=== PATIENT | male | born 1975 | race Caucasian/White ===

== ENCOUNTER 2024-03-04 14:44 | Inpatient (IN) | payer BC, SELFPAY ==
[2024-03-04] MEDS ORDERED: NA CHLORIDE 0.9% 1,000 ML ONE (15:03)
[2024-03-04 15:34] LABS: Absolute Basophils 0.3 K/uL (0-0.5); Absolute Eosinophils 0.1 K/uL (0-0.5); Absolute Lymphocytes (CBC) 1.7 K/uL (0.7-4.9); Absolute Monocytes 0.9 K/uL (0.1-1.3); Absolute Neutrophil 8.7 K/uL (1.8-8.0); Basophils % 2.5 % (0-1.3); Eosinophils % 0.8 % (0-4.4); Hemoglobin 15.2 g/dL (13.6-17.9); Lymphocytes % 14.5 % (15.3-44.8); MCH 27.2 pg (27.0-35.0); MCHC 33.8 g/dL (32.0-36.0); MCV 80.6 fL (80-100); MPV 8.3 fL (7.6-11.3); Monocytes % 7.5 % (3.3-12.3); Neutrophils % 74.7 % (41.7-73.7); Nucleated Red Blood Cells % 0.1 % (0-0); Platelets 332 thou/uL (152-406); RBC Red Blood Cell Count 5.58 M/uL (4.33-5.43); Red Cell Distribution Width 13.4 % (12.1-15.2)
--- NOTE | 2024-03-04 15:47 | RAD REPORT ---
EXAM: CT brain without contrast HISTORY: ams COMPARISON: None TECHNIQUE: Multiple contiguous axial images were obtained and a CT of the brain without contrast. Sag ittal and coronal reformats were performed. FINDINGS:No evidence of hydrocephalus, intracranial hemorrhage, or extra-axial fluid collection. The brain is normal in morphology. The calvarium is intact. The visualized mastoid air cells are essentially clear. Complete opacificati on of the left maxillary and frontal sinuses. IMPRESSION: No evidence of acute intracranial abnormality. Complete inflammatory opacification of the left maxillary and frontal sinuses. EXAM: CT of the cervical spine without contrast HISTORY: ams COMPARISON: None TECHNIQUE: Multiple contiguous axial images were obtained in a CT of the cervical spine without contr ast. Sagittal and coronal reformats were performed. FINDINGS: The vertebral bodies demonstrate normal height and alignment. No evidence of acute fracture or subluxation.. No degenerative changes are present. No prevertebral soft tissue swelling is seen. The posterior facets are well aligned. Normal alignment of the skull base with the cervical spine is seen. The lung apices are unremarkable. IMPRESSION: No evidence of acute osseous abnormality of the cervical spine.
[2024-03-04 15:50] LABS: Albumin 3.8 g/dL (3.4-5.0); Albumin/Globulin Ratio 0.8 (1.1-1.8); Anion Gap 13.4 mEq/L (5.0-15.0); Bilirubin Direct 0.3 mg/dL (0-0.2); Bilirubin Indirect, Calculated 1.2 mg/dL (0.2-0.8); Bilirubin Total 1.5 mg/dL (0.2-1.0); Globulin 4.5 g/dL (2.3-3.5); Potassium 4.4 mEq/L (3.5-5.1); Protein, Total 8.3 g/dL (6.4-8.2)
--- NOTE | 2024-03-04 16:07 | RAD REPORT ---
EXAMINATION: ONE VIEW CHEST XR CLINICAL INDICATION: Male, 48 years old.,ams TECHNIQUE: Frontal chest projection is submitted. Examination is limited by patient positioning and t echnique. COMPARISON: No prior exam. FINDINGS: The lungs are well inflated and clear. No pneumothorax or sizable effusion. The heart is normal in s ize. Mediastinal contours are unremarkable. IMPRESSION: No acute intrathoracic abnormalities.
[2024-03-04 17:01] LABS: Blood Morphology Comment NOT SEEN (NOT SEEN); Platelet Estimate ADEQ; White Blood Cell Scan OK (OK)
[2024-03-04 17:09] LABS: Specific Gravity 1.011 (1.005-1.030); Sqamous Epithelial None Seen /HPF (None Seen); Urine Bacteria <20 /HPF (<20); Urine Bilirubin NEGATIVE (Negative); Urine Blood Negative (Negative); Urine Clarity Turbid (Clear); Urine Color Yellow (Yellow); Urine Crystals Unidentified Few /HPF (None Seen); Urine Culture Reflex Order NOT NEEDED; Urine Glucose 3+ (Negative); Urine Ketones TRACE (Negative); Urine Micro Reflex YN NO BILL MICROSCOPIC; Urine Mucus 1+ /HPF (None Seen); Urine Nitrite NEGATIVE (Negative); Urine Protein 1+ (Negative); Urine RBC <5 /HPF (None Seen); Urine Urobilinogen Normal (Normal); Urine WBC <5 /HPF (<5); Urine pH 6.5 (5.0-7.0)
--- NOTE | 2024-03-04 17:26 | ER ---
Nurse's Notes [facility] Name: Kapil Pugh Age: 48 yrs Sex: Male : 1975 Arrival Date: 03/04/2024 Time: 14:44 Bed 7 Private MD: Diagnosis: Unsteadiness of gait;Altered mental status;Syncope;Hyponatremia Presentation: 03/04 14:51 Chief complaint: Patient states: dizzy , blacking out, falling X 2 days , can't keep iw food down, also has back and neck pain. Coronavirus screen: Client presents with at least one sign or symptom that may indicate coronavirus-19. Ebola Screen: No symptoms or risks identified at this time. Risk Assessment: Do you want to hurt yourself or someone else? Patient reports no desire to harm self or others. 14:51 Method Of Arrival: Ambulatory iw 14:51 Acuity: KERI 2 iw 14:59 Initial Sepsis Screen: Does the patient meet any 2 criteria? No. Patient's initial iw sepsis screen is negative. Does the patient have a suspected source of infection? No. Patient's initial sepsis screen is negative. Onset of symptoms was March 02, 2024. Historical: - Allergies: 14:59 Benadryl; RLS; iw - Home Meds: 15:00 None [Active]; iw - PMHx: 15:39 None; mb9 - PSHx: 15:00 back; iw - Immunization history:: Adult Immunizations not up to date. - Infectious Disease History:: Denies. - Social history:: Smoking status: Patient/guardian denies using tobacco, the patient reports quitting approximately 2 years ago. - Family history:: not pertinent. Screenin:03 [facility] ED Fall Risk Assessment (Adult) History of falling in the last 3 months, mb9 including since admission Yes- fall prone (multiple falls) (3 pts) Confusion or Disorientation No (0 pts) Intoxicated or Sedated No (0 pts) Impaired Gait Yes (1 pt) Mobility Assist Device Used No (0 pt) Altered Elimination No (0 pt) Score/Fall Risk Level 3 or more points = High Risk Oriented to surroundings, Maintained a safe environment, Educated pt \T\ family on fall prevention, incl call for assistance when getting out of bed. Abuse screen: Denies threats or abuse. Nutritional screening: No deficits noted. Tuberculosis screening: No symptoms or risk factors identified. Assessment: 15:15 General: Appears in no apparent distress. Behavior is calm, cooperative. Pain: mb9 Complains of pain in right leg and left leg. Neuro: Tay Agitation-Sedation Scale (RASS): 0 - Alert and Calm Level of Consciousness is awake, alert, obeys commands, Oriented to person, place, time, situation, Appropriate for age. Neuro: Reports dizziness. Cardiovascular: Patient's skin is warm and dry. Cardiovascular: Heart tones S1 S2 present. Respiratory: Airway is patent Respiratory effort is even, unlabored, Respiratory pattern is regular, symmetrical. GI: No signs and/or symptoms were reported involving the gastrointestinal system. : No signs and/or symptoms were reported regarding the genitourinary system. EENT: No signs and/or symptoms were reported regarding the EENT system. Derm: Skin is pink, warm \T\ dry. Musculoskeletal: Range of motion: intact in all extremities. 16:15 Reassessment: No changes from previously documented assessment. Patient and/or family mb9 updated on plan of care and expected duration. Pain level reassessed. Patient is alert, oriented x 3, equal unlabored respirations, skin warm/dry/pink. 17:30 Reassessment: No changes from previously documented assessment. Patient and/or family mb9 updated on plan of care and expected duration. Pain level reassessed. Patient is alert, oriented x 3, equal unlabored respirations, skin warm/dry/pink. Vital Signs: 15:02 BP 107 / 67; Pulse 78; Resp 16; Temp 98; Pulse Ox 100% ; Weight 88.45 kg; Height 5 ft. mb9 11 in. ; Pain 0/10; 16:50 BP 122 / 86; Pulse 96; Resp 16; Pulse Ox 100% on R/A; mb9 17:30 BP 133 / 91; Pulse 86; Resp 13; Pulse Ox 100% on R/A; mb9 15:02 Body Mass Index 27.20 (88.45 kg, 180.34 cm) mb9 15:02 Pain Scale: Adult mb9 ED Course: 14:46 Patient arrived in ED. im 14:47 Jonny Claros MD is Attending Physician. rt 14:51 Kerry Heath RN is Primary Nurse. mb9 14:52 Triage completed. iw 15:00 Arm band placed on. iw 15:10 CT Head C Spine In Process Unspecified. EDMS 15:15 Initial lab(s) drawn, by me, sent to lab. EKG done, by ED staff, reviewed by Jonny Claros MD. Inserted saline lock: 18 gauge in right forearm, using aseptic technique. Blood collected. Flushed with 10 mL NS. 15:23 Basic Metabolic Panel Sent. mb9 15:23 CBC with Diff Sent. mb9 15:24 LFT's Sent. mb9 15:24 Troponin HS Sent. mb9 15:24 ETOH Level Sent. mb9 15:39 Placed in gown. Bed in low position. Call light in reach. Side rails up X 1. Provided mb9 Education on: press call light if needing anything. Client placed on continuous cardiac and pulse oximetry monitoring. NIBP monitoring applied. monitor worker on. 15:39 No provider procedures requiring assistance completed. mb9 15:46 XRAY Chest (1 view) In Process Unspecified. EDMS 17:25 Sean Mccarthy is Hospitalizing Provider. rt 17:25 Patient admitted, IV remains in place. mb9 Administered Medications: 15:23 Drug: NS 0.9% IV 1000 ml IV at 1 bolus Per protocol; to be given as a bolus over 60 mb9 minutes Route: IV; Rate: 1 bolus; Site: right forearm; 16:51 Follow up: Response: No adverse reaction; IV Status: Completed infusion mb9 Medication: 15:39 VIS not applicable for this client. mb9 Outcome: 17:25 Decision to Hospitalize by Provider. rt 21:46 Admitted to Tele accompanied by [facility], via wheelchair, room 405, vc1 21:46 Condition: good 21:46 Instructed on the need for admit, 21:47 Patient left the ED. vc1 Signatures: Dispatcher [employer] EDMS Sury Velazquez RN RN iw Shabnam Alexandra RN RN vc1 Kerry Heath RN RN mb9 [place], Ryan, MD MD rt Shanda Carrington Corrections: (The following items were deleted from the chart) 14:59 14:51 Chief complaint: Patient states: dizzy , blacking out, falling X 2 days , can't iw keep food down iw 15:24 15:02 BP 107 / 67; Resp 16bpm; mb9 mb9
--- NOTE | 2024-03-04 17:26 | EDPHYS ---
Physician Documentation [facility] Name: Kapil Pugh Age: 48 yrs Sex: Male : 1975 Arrival Date: 03/04/2024 Time: 14:44 Bed 7 Private MD: ED Physician Jonny Claros HPI: 03/04 16:23 This 48 yrs old Male presents to ER via Ambulatory with complaints of Dizziness. rt 16:23 Patient presents to the ED with dizziness, reportedly blacking out repeatedly over the rt past 2 days. Patient was found staggering in the parking lot. Reports nausea and inability to anything down by mouth. Denies other acute complaints at this time, symptoms are moderate in severity, no other aggravating or alleviating factors.. Historical: - Allergies: 14:59 Benadryl; RLS; iw - Home Meds: 15:00 None [Active]; iw - PMHx: 15:39 None; mb9 - PSHx: 15:00 back; iw - Immunization history:: Adult Immunizations not up to date. - Infectious Disease History:: Denies. - Social history:: Smoking status: Patient/guardian denies using tobacco, the patient reports quitting approximately 2 years ago. - Family history:: not pertinent. ROS: 16:23 Constitutional: Negative for fever, chills, and weight loss, Cardiovascular: Negative rt for chest pain, palpitations, and edema, Respiratory: Negative for shortness of breath, cough, wheezing, and pleuritic chest pain, MS/Extremity: Negative for injury and deformity, Skin: Negative for injury, rash, and discoloration, 16:23 Abdomen/GI: Positive for nausea and vomiting, Negative for abdominal pain, 16:23 Neuro: Positive for altered mental status, dizziness, Exam: 16:23 Constitutional: This is a well developed, well nourished patient who is awake, alert, rt and in no acute distress. Head/Face: Normocephalic, atraumatic. Chest/axilla: Normal chest wall appearance and motion. Nontender with no deformity. No lesions are appreciated. Cardiovascular: Regular rate and rhythm with a normal S1 and S2. No gallops, murmurs, or rubs. Normal PMI, no JVD. No pulse deficits. Respiratory: Lungs have equal breath sounds bilaterally, clear to auscultation and percussion. No rales, rhonchi or wheezes noted. No increased work of breathing, no retractions or nasal flaring. Abdomen/GI: Soft, non-tender, with normal bowel sounds. No distension or tympany. No guarding or rebound. No evidence of tenderness throughout. Skin: Warm, dry with normal turgor. Normal color with no rashes, no lesions, and no evidence of cellulitis. MS/ Extremity: Pulses equal, no cyanosis. Neurovascular intact. Full, normal range of motion. 16:23 ECG was reviewed by the Attending Physician. 16:23 Neuro: Unsteady gait, strength and sensation equal in all 4 extremities, no cranial nerve deficits, Vital Signs: 15:02 BP 107 / 67; Pulse 78; Resp 16; Temp 98; Pulse Ox 100% ; Weight 88.45 kg; Height 5 ft. mb9 11 in. ; Pain 0/10; 16:50 BP 122 / 86; Pulse 96; Resp 16; Pulse Ox 100% on R/A; mb9 17:30 BP 133 / 91; Pulse 86; Resp 13; Pulse Ox 100% on R/A; mb9 15:02 Body Mass Index 27.20 (88.45 kg, 180.34 cm) mb9 15:02 Pain Scale: Adult mb9 MDM: 14:48 Medical Screening Exam initiated rt 17:26 Differential diagnosis: Dysrhythmia, electrolyte disturbance, dehydration, SUNNY. Data rt reviewed: vital signs, nurses notes, lab test result(s), EKG, radiologic studies. Consideration of Admission/Observation Patient was admitted/placed on observation. Management of patient was discussed with the following: Hospitalist: Agrees to admit. I considered the following discharge prescriptions or medication management in the emergency department Medications were administered in the Emergency Department. See MAR. Independent interpretation of the following test(s) in the Emergency Department CT Scan: My interpretation is No intracranial hemorrhage seen on my interpretation of CT scan images. Counseling: I had a detailed discussion with the patient and/or guardian regarding the historical points, exam findings, and any diagnostic results supporting the discharge/admit diagnosis, lab results, radiology results, the need for further work-up and treatment in the hospital. Response to treatment: the patient's symptoms have mildly improved after treatment. 03/04 14:56 Order name: Basic Metabolic Panel; Complete Time: 16:10 rt 03/04 14:56 Order name: CBC with Diff; Complete Time: 17:09 rt 03/04 14:56 Order name: LFT's; Complete Time: 16:10 rt 03/04 14:56 Order name: Troponin HS; Complete Time: 16:10 rt 03/04 14:56 Order name: UAM; Complete Time: 17:09 rt 03/04 14:56 Order name: ETOH Level; Complete Time: 16:48 rt 03/04 15:10 Order name: Glucose, Ancillary Testing; Complete Time: 16:10 EDMS 03/04 17:01 Order name: CBC Smear Scan; Complete Time: 17:09 EDMS 03/04 19:17 Order name: CBC with Automated Diff EDMS 03/04 19:17 Order name: Comprehensive Metabolic Panel EDMS 03/04 19:17 Order name: Magnesium EDMS 03/04 19:17 Order name: NT PRO-BNP EDMS 03/04 19:17 Order name: Phosphorus EDMS 03/04 19:17 Order name: Thyroid Stimulating Hormone EDMS 03/04 19:17 Order name: Urinalysis w/ reflexes EDMS 03/04 19:17 Order name: Lipid Profile EDMS 03/04 19:17 Order name: Lipid Profile EDMS 03/04 14:56 Order name: XRAY Chest (1 view); Complete Time: 16:10 rt 03/04 14:56 Order name: CT Head C Spine; Complete Time: 16:10 rt 03/04 19:17 Order name: CONS Physician Consult EDMS 03/04 14:56 Order name: Cardiac monitoring; Complete Time: 15:00 rt 03/04 14:56 Order name: EKG - Nurse/Tech; Complete Time: 15:23 rt 03/04 14:56 Order name: IV Saline Lock; Complete Time: 15:23 rt 03/04 14:56 Order name: Labs collected and sent; Complete Time: 15:23 rt 03/04 14:56 Order name: O2 Per Protocol; Complete Time: 15:00 rt 03/04 14:56 Order name: O2 Sat Monitoring; Complete Time: 15:00 rt 03/04 14:56 Order name: Accucheck; Complete Time: 15:23 rt EC:23 Rate is 93 beats/min. Rhythm is regular, Normal Sinus Rhythm with No ectopy. QRS Caspar rt is Normal. OH interval is normal. QRS interval is normal. QT interval is normal. No Q waves. T waves are Normal. No ST changes noted. Interpreted by me. Administered Medications: 15:23 Drug: NS 0.9% IV 1000 ml IV at 1 bolus Per protocol; to be given as a bolus over 60 mb9 minutes Route: IV; Rate: 1 bolus; Site: right forearm; 16:51 Follow up: Response: No adverse reaction; IV Status: Completed infusion mb9 Disposition Summary: 03/04/24 17:25 Hospitalization Ordered Notes: Hospitalization Status: Observation rt Provider: Sean Mccarthy rt Location: Telemetry/MedSurg (observation) rt Condition: Stable rt Problem: new rt Symptoms: have improved rt Bed/Room Type: Standard rt Room Assignment: 405(03/04/24 19:33) cg Diagnosis - Unsteadiness of gait rt - Altered mental status rt - Syncope rt - Hyponatremia rt Forms: - Medication Reconciliation Form rt - SBAR form rt - Leadership Thank You Letter rt Signatures: Dispatcher [employer] EDSury Jacobs RN RN iw Stephanie Bridges RN RN cg Wilkerson, Mary Beth, RN RN mb9 Jonny Claros MD MD rt VallejoAngela navarrete rv1 Corrections: (The following items were deleted from the chart) 14:56 14:56 Head C Spine MPR Wo Con+CT.RAD.BRZ ordered. EDMS EDMS 19:25 17:25 rt rv1 19:31 19:25 220 rv1 cg 19:33 19:31 cg rv1 19:33 19:33 405 rv1 cg
[2024-03-04] MEDS ORDERED: ACETAMINOPHEN 325 MG TABLET PO PRN (19:09)
[2024-03-04] MEDS ORDERED: ONDANSETRON 4 MG (ODT) TAB PO PRN (19:09)
--- NOTE | 2024-03-04 19:28 | P.HP ---
Certification for Inpatient With expected LOS: <2 Midnights Practitioner: I am a practitioner with admitting privileges, knowledge of patient current condition, hospital course, and medical plan of care. Services: Services provided to patient in accordance with Admission requirements found in Title 42 Section 412.3 of the Code of Federal Regulations Patient History Date of Service: 03/04/24 Reason for admission: hyponatremia History of Present Illness: 48-year-old man presented to the emergency room [facility] complaining of dizziness and syncope for the past 2 days. The patient states he usually has an headache prior to "blacking out", and he has felt this dizziness before. His syncopal event today was unwitnessed and the patient denies loss of consciousness. Head CT performed in the emergency room revealed no abnormalities. The patient states that Motrin usually improves his head pain, but he did not take any for his current headache. The patient also states he has been nauseous and has vomited earlier today. The patient denies history of congestive heart failure, cirrhosis, kidney disease, and hypothyroidism. He does not take any medications. Home medications list reviewed: Yes (none) - Past Medical/Surgical History -: pre-diabetic Past Surgical History: Patient denies surgical history - Social History Smoking Status: Former smoker (quit 2 years ago, however now does chewing tabacco daily) Alcohol use: No Review of Systems General: Weakness Cardiovascular: Light Headedness Gastrointestinal: Nausea, Vomiting Physical Examination - Vital Signs Temperature: 98 F Blood Pressure: 140/100 Pulse: 86 Respirations: 18 Pulse Ox (%): 100 - Physical Exam General: Alert, Oriented x3 HEENT: Atraumatic, Normocephalic Neck: JVD not distended Respiratory: Clear to auscultation bilaterally Cardiovascular: No gallops, No rubs, No murmurs Gastrointestinal: Normal bowel sounds, Non-distended Musculoskeletal: No clubbing, No erythema, No tenderness Neurological: Normal speech, Normal strength at 5/5 x4 extr, Sensation intact - Studies Laboratory Data (last 24 hrs) 03/04/24 03/04/24 15:14 15:14 WBC 11.60 H Hgb 15.2 Hct 45.0 Plt Count 332 Sodium 128 L Potassium 4.4 BUN 11 Creatinine 1.46 H Glucose 291 H Total Bilirubin 1.5 H AST 12 L ALT 15 L Alkaline Phosphatase 110 Assessment and Plan - Problems (Diagnosis) (1) Hyponatremia Current Visit: Yes Status: Acute - Plan Hyponatremia- admit to floor Maintenance fluid with 3% normal saline at 30 cc/hr Ordered plasma osmolality, urine osmolality Urine sodium, a.m. cortisol, and ACTH TSH, BMP, and other lab work pending Every 2 hours sodium and neurochecks recommended - Advance Directives Does patient have a Living Will: No Does patient have a Durable POA for Healthcare: No - Code Status/Comfort Care Code Status: Full Code
[2024-03-04 23:16] VITALS: BMI 24.4
[2024-03-04] MEDS: ZOLPIDEM TARTRATE 5 MG TABLET PO PRN (23:24)
[2024-03-04] MEDS ORDERED: NA CHLORIDE 3% 500 ML IV SCH (23:45)
[2024-03-04] MEDS: NA CHLORIDE 3% 500 ML IV SCH (23:45)
[2024-03-05 06:48] LABS: Absolute Basophils 0.1 K/uL (0-0.5); Absolute Eosinophils 0.1 K/uL (0-0.5); Absolute Lymphocytes (CBC) 2.8 K/uL (0.7-4.9); Absolute Monocytes 0.8 K/uL (0.1-1.3); Absolute Neutrophil 3.6 K/uL (1.8-8.0); Basophils % 1.3 % (0-1.3); Eosinophils % 1.8 % (0-4.4); Hematocrit 41.6 % (39.6-49.0); Hemoglobin 13.4 g/dL (13.6-17.9); Lymphocytes % 37.5 % (15.3-44.8); MCH 26.8 pg (27.0-35.0); MCHC 32.3 g/dL (32.0-36.0); MCV 83.1 fL (80-100); MPV 8.9 fL (7.6-11.3); Monocytes % 10.7 % (3.3-12.3); Neutrophils % 48.7 % (41.7-73.7); Platelets 292 thou/uL (152-406); RBC Red Blood Cell Count 5.01 M/uL (4.33-5.43); Red Cell Distribution Width 12.9 % (12.1-15.2)
[2024-03-05 07:20] LABS: ALT/SGPT < 14 U/L (16-61); AST/SGOT < 10 U/L (15-37); Albumin 3.2 g/dL (3.4-5.0); Albumin/Globulin Ratio 0.8 (1.1-1.8); Alkaline Phosphatase 91 U/L (45-117); Anion Gap 7.5 mEq/L (5.0-15.0); BUN Blood Urea Nitrogen 12 mg/dL (7-18); Bicarbonate 29 mEq/L (21-32); Bilirubin Total 1.2 mg/dL (0.2-1.0); Glomerular Filtration Rate 66 ml/min (=/>90); Glucose Level 213 mg/dL (74-106); NT PRO-BNP 35 pg/mL (<125); Phosphorus 4.8 mg/dL (2.5-4.9); Potassium 4.5 mEq/L (3.5-5.1); Protein, Total 7.2 g/dL (6.4-8.2); Sodium Level 133 mEq/L (136-145)
[2024-03-05] MEDS: ENOXAPARIN 40 MG/0.4 ML SQ SCH (10:47)
[2024-03-05] MEDS: NA CHLORIDE 0.9% 1,000 ML IV SCH (14:31)
--- NOTE | 2024-03-05 14:49 | EKG ---
Test Date: 2024-03-04 Test Time: 15:29:37 [employer]: EKATERINA MEASUREMENT RESULTS: Intervals: Rate: 93 WY: 140 QRSD: 68 QT: 332 QTc: 412 [place]: P: 62 WY: 140 QRS: 62 T: 72 INTERPRETIVE STATEMENTS: Normal sinus rhythm Normal ECG No previous ECG available for comparison Electronically Signed On 03-05-24 14:46:13 CDT by Abel Plolard
[2024-03-05 15:50] LABS: Sqamous Epithelial None Seen /HPF (None Seen); Urine Bacteria <20 /HPF (<20); Urine Bilirubin NEGATIVE (Negative); Urine Blood Negative (Negative); Urine Clarity Clear (Clear); Urine Color Light-Yellow (Yellow); Urine Culture Reflex Order NOT NEEDED; Urine Glucose 4+ (Over) (Negative); Urine Ketones TRACE (Negative); Urine Microscopic Reflex YN ORDER UMIC; Urine Mucus Slight /HPF (None Seen); Urine Nitrite NEGATIVE (Negative); Urine Protein TRACE (Negative); Urine RBC <5 /HPF (None Seen); Urine Urobilinogen Normal (Normal); Urine WBC <5 /HPF (<5); Urine pH 6.5 (5.0-7.0)
--- NOTE | 2024-03-05 16:40 | CON ---
Date of Consultation: 03/05/2024 Reason For Consultation: Hyponatremia, elevated BUN and creatinine. History Of Present Illness: This is a pleasant 48-year-old gentleman with significant past medical h istory of diabetes, not on any treatment. The patient came to the hospital that he has altered menta l status. He has nausea, vomiting for the last 24 hours with fever, found to have hyponatremia. For that reason, the patient admitted. The patient started on IV hydration, started getting better. Past Medical History: Includes diabetes. Past Surgical History: Negative. Social History: Active smoker. Occasional alcohol. Denied drug abuse. Review of Systems: Head and Neck: Has lightheaded. GI: Nausea and vomiting. : No polyuria. No dysuria. Has strain and hesitancy. No nocturia. ELECTION ASSISTANT: Not applicable. Respiratory: No shortness of breath. Cardiovascular: No chest pain. Endocrine: No polydipsia. Skin: No rash. Neuro: Has altered mental status. Dizziness and lightheaded. Has neuropathy. Physical Examination: Vital Signs: When I saw the patient, blood pressure 101/59, pulse of 90, afebrile. Chest: Clear to auscultation. Heart: S1, S2. Regular. Abdomen: Soft, nontender. Extremities: No edema. Neurological: Alert. No focality currently. Laboratory Data: Yesterday, sodium 128, creatinine 1.4, GFR of 59. Today lab data; sodium 133, pota ssium 4.5, bicarb 29, BUN 12, creatinine 1.3, GFR of 66, calcium 9.7. TSH 1.3. WBC 7.5, hemoglobin 13.4. Urinalysis; specific gravity of 1.011. Current Medications: The patient on, include Lovenox, Tylenol, IV fluid. The patient received 3%. Assessment And Plan: 1.Acute kidney injury secondary to prerenal, recovered, resolved. I am going to continue to monitor . 2.Hypertension, controlled, optimal. We will continue to monitor off blood pressure medication. 3.Hyponatremia, mostly depletional, recovered. Given that he has received 3%, I am going to put him on normal saline. Currently, hypothyroidism has been ruled out. The patient corrected. I am going to send for urine electrolytes and we will follow up the patient. Thank you, Dr. Mccarthy, for allowing us to participate in the care of your patient. JENNY Voice ID: [id number] Report ID: [id number]
--- NOTE | 2024-03-05 17:33 | P.PN ---
Subjective Date of Service: 03/05/24 Chief Complaint: hyponatremia Patient reports of dizziness with ambulation. Blood pressure improved, patient is not orthostatic. Physical Examination - Vital Signs Temperature: 97.4 F Blood Pressure: 150/98 Pulse: 73 Respirations: 16 Pulse Ox (%): 99 Assessment And Plan - Plan Physical examination General: Alert and oriented x3, NAD, HEENT: Conjunctiva not pale, anicteric sclera Neck: Supple, no elevated JVD Heart: Heart sounds 1 and 2 normal, regular rhythm, normal rate, no pedal edema Lungs: Clear to auscultation bilaterally, adequate breath sounds bilaterally, no rhonchi or crackles. Abdomen: Soft, nondistended, nontender, normal bowel sounds. Extremities: No tenderness, no deformity Skin: Normal skin turgor, no rash, no nodules or ulcers. Neuro: No focal motor deficit. Normal speech. Psychiatry: Normal mood, no agitation. Assessment and plan Hyponatremia Symptomatic with dizziness and generalized weakness Associated acute kidney injury. Hyponatremia likely secondary to dehydration. Sodium level is improving. Patient seen and evaluated by nephrology. Titrate IV normal saline. Monitor BMP. SUNNY Nephrology input appreciated. SUNNY is improving with IV fluid Continue IV normal saline. Monitor renal function Intractable nausea GERD vs peptic ulcer suspected Trial of Protonix Diet as tolerated. Patient informed to follow-up with GI as outpatient. Monitor response to treatment. DVT prophylaxis: Lovenox
[2024-03-05] MEDS ORDERED: MAGNES/ALUMIN/SIMET 30ML UCUP PO PRN (17:35)
[2024-03-05] MEDS: PANTOPRAZOLE 40MG TABLET PO SCH (20:25)
[2024-03-06 07:36] LABS: Albumin 2.9 g/dL (3.4-5.0); Anion Gap 8.3 mEq/L (5.0-15.0); Phosphorus 3.2 mg/dL (2.5-4.9); Potassium 4.3 mEq/L (3.5-5.1); Uric Acid 4.6 mg/dL (3.5-7.2)
[2024-03-06 09:38] VITALS: O2SAT 98
[2024-03-06 10:09] VITALS: BP 128/85; TEMP 97.6
--- NOTE | 2024-03-06 10:50 | P.DS ---
Admission Date: 03/04/24 Discharge Date: 03/06/24 Disposition: ROUTINE DISCHARGE Discharge Condition: FAIR Reason for Admission: hyponatremia Brief History of Present Illness: 48-year-old man presented to the emergency room tonight complaining of dizziness and syncope for the past 2 days. Patient described headache and a feeling of blacking out. His syncopal event was unwitnessed and the patient denied loss of consciousness. Head CT performed in the emergency room revealed no abnormalities. The patient states that Motrin usually improves his head pain, but he did not take any for his current headache. The patient also reported history of intermittent nausea and sometimes vomiting of several months duration, TUMS sometimes help with the nausea. Blood work showed hyponatremia. Patient was admitted for further management. Hospital Course: Hyponatremia Symptomatic with dizziness and generalized weakness Associated acute kidney injury. Hyponatremia likely secondary to dehydration. Sodium level improved to normal with IV normal saline Patient seen and evaluated by nephrology. Hyponatremia resolved. Patient has been ambulatory and tolerating his diet. SUNNY Nephrology assisted with management. SUNNY resolved with IV fluid Intractable nausea GERD vs peptic ulcer suspected Patient tolerated the He is informed to follow-up with GI as outpatient. DM type II with hyperglycemia Hemoglobin A1c is 10.2 Patient is not on any home medications. High risk of hypoglycemia with oral hypoglycemics given his unpredictable oral intake. Will avoid oral hypoglycemic and long-acting insulin for now. Will start patient on metformin on discharge. Patient is informed to follow-up with the PCP to monitor and manage his diabetes. Vital Signs/Physical Exam: Temp Pulse Resp BP Pulse Ox 97.6 F 69 20 128/85 98 03/06/24 08:00 03/06/24 08:00 03/06/24 08:00 03/06/24 08:00 03/06/24 08:00 General: Alert, In no apparent distress, Oriented x3 HEENT: Mucous membr. moist/pink Neck: Supple, JVD not distended Respiratory: Clear to auscultation bilaterally, Normal air movement Cardiovascular: No edema, Regular rate/rhythm, Normal S1 S2 Gastrointestinal: Normal bowel sounds, Soft and benign, Non-distended, No tenderness Musculoskeletal: No swelling, No tenderness Integumentary: No rashes, No cyanosis Neurological: Normal speech, Normal strength at 5/5 x4 extr Laboratory Data at Discharge: WBC 7.50 thou/uL (4.3-10.9) 03/05/24 05:29 Hgb 13.4 g/dL (13.6-17.9) L D 03/05/24 05:29 Hct 41.6 % (39.6-49.0) 03/05/24 05:29 Plt Count 292 thou/uL (152-406) 03/05/24 05:29 Sodium 137 mEq/L (136-145) D 03/06/24 05:56 Potassium 4.3 mEq/L (3.5-5.1) 03/06/24 05:56 BUN 16 mg/dL (7-18) 03/06/24 05:56 Creatinine 1.24 mg/dL (0.70-1.30) 03/06/24 05:56 Glucose 177 mg/dL (74-106) H 03/06/24 05:56 Uric Acid 4.6 mg/dL (3.5-7.2) 03/06/24 05:56 Phosphorus 3.2 mg/dL (2.5-4.9) 03/06/24 05:56 Magnesium 2.0 mg/dL (1.6-2.4) 03/05/24 05:29 Total Bilirubin 1.2 mg/dL (0.2-1.0) H 03/05/24 05:29 AST < 10 U/L (15-37) L 03/05/24 05:29 ALT < 14 U/L (16-61) L 03/05/24 05:29 Alkaline Phosphatase 91 U/L (45-117) 03/05/24 05:29 Triglycerides 132 mg/dL (<150) 03/05/24 05:29 Cholesterol 122 mg/dL (<200) 03/05/24 05:29 HDL Cholesterol 33 mg/dL (40-60) L 03/05/24 05:29 Cholesterol/HDL Ratio 3.70 03/05/24 05:29 Home Medications: Metformin HCl [Glucophage*] 500 mg PO BIDWM #60 tab 03/06/24 Pantoprazole [Protonix Tab*] 40 mg PO DAILY #30 tab 03/06/24 New Medications: Metformin HCl [Glucophage*] 500 mg PO BIDWM #60 tab Pantoprazole [Protonix Tab*] 40 mg PO DAILY #30 tab Diet: ADA Activity: Ad yosi Followup: NONE,NONE [Primary Care Provider] - 1 Week Omer Chaves MD [ACTIVE - CAN ADMIT] - (GERD, peptic ulcer not excluded) Time spent managing pt's care (in minutes): 36
[2024-03-06] MEDS ORDERED: PANTOPRAZOLE 40MG TABLET PO SCH (18:00)
== END 2024-03-06 10:19 | disposition home or self-care (01) | DRG 641 ==
LOC: ER 14:44 → ERHOLD 19:09 → 4TH 21:02
PROVIDERS: ADMIT Internal Medicine; ATTEND Internal Medicine
DX: E87.1 Hypo-osmolality and hyponatremia (principal); N17.9 Acute kidney failure, unspecified; E86.0 Dehydration; G62.9 Polyneuropathy, unspecified; I10 Essential (primary) hypertension; E11.65 Type 2 diabetes mellitus with hyperglycemia; K21.9 Gastro-esophageal reflux disease without esophagitis; K27.9 Peptic ulcer, site unspecified, unspecified as acute or chronic, without hemorrhage or perforation; Z87.891 Personal history of nicotine dependence; Z79.84 Long term (current) use of oral hypoglycemic drugs; Z79.899 Other long term (current) drug therapy
CPT/HCPCS: 36415; 70450; 71045; 72125; 80048; 80053; 80061; 80069; 80076; 81001; 82024; 82077; 82533; 82947; 83036; 83735; 83880; 83930; 83935; 84100; 84132; 84300; 84443; 84484; 84550; 85025; 93005; 96360; 99285; J1650; J7030

== ENCOUNTER 2024-12-17 15:01 | Emergency (ER) | payer BC, SELFPAY ==
[2024-12-17 15:35] LABS: Absolute Lymphocytes (CBC) 2.3 K/uL (0.7-4.9); Hematocrit 38.6 % (39.6-49.0); Hemoglobin 13.1 g/dL (13.6-17.9); MCH 27.3 pg (27.0-35.0); MCHC 33.8 g/dL (32.0-36.0); MCV 80.9 fL (80-100); MPV 8.1 fL (7.6-11.3); Nucleated RBC Absolute Count 0.0 (0-0); Nucleated Red Blood Cells % 0.1 % (0-0); RBC Red Blood Cell Count 4.78 M/uL (4.33-5.43); White Blood Count 10.90 thou/uL (4.3-10.9)
[2024-12-17 15:45] LABS: PT Prothrombin Time 12.4 SECONDS (10-13.0); PTT, Activated Partial Thromb 33.3 SECONDS (27.2-37.4); Protime INR 1.1
[2024-12-17 15:59] LABS: ALT/SGPT 55.0 U/L (16-61); AST/SGOT 23.0 U/L (15-37); Albumin 3.8 g/dL (3.4-5.0); Albumin/Globulin Ratio 1.0 (1.1-1.8); Alkaline Phosphatase 127.0 U/L (45-117); Anion Gap 9.3 mEq/L (5.0-15.0); BUN Blood Urea Nitrogen 24.0 mg/dL (7-18); Bilirubin Indirect, Calculated 0.7 mg/dL (0.2-0.8); Globulin 3.9 g/dL (2.3-3.5); Glucose Level 130.0 mg/dL (74-106); Magnesium 2.1 mg/dL (1.6-2.4); Potassium 4.3 mEq/L (3.5-5.1); Troponin High Sensitivity 3.4 pg/mL (<58.9)
--- NOTE | 2024-12-17 16:29 | RAD REPORT ---
EXAM: Chest Single View HISTORY: 49 years Male syncope COMPARISON: 03/04/2024 FINDINGS: LUNGS/PLEURA: The lungs are clear. No pleural effusions or pneumothorax. No pulmonary edema. CARDIAC/MEDIASTINUM: The cardiac silhouette is within normal limits. UPPER ABDOMEN: No significant abnormality. BONES: No acute abnormality. LINES/TUBES/OTHER: N/A IMPRESSION: No evidence of acute cardiopulmonary disease. No significant change from prior.
--- NOTE | 2024-12-17 17:38 | ER ---
Nurse's Notes [facility] Name: Kapil Pugh Age: 49 yrs Sex: Male : 1975 Arrival Date: 12/17/2024 Time: 15:01 Bed 10 Private MD: Diagnosis: Micturition syncope Presentation: 12/17 15:24 Chief complaint: EMS states: Syncopal episode that happened while standing to urinate hb this morning, unknown downtime, found by sister at approx 1230. BP 108/80, HR 90s, T 98.2, FSBS 119. 20g LAC. Coronavirus screen: At this time, the client does not indicate any symptoms associated with coronavirus-19. Ebola Screen: No symptoms or risks identified at this time. Initial Sepsis Screen: Does the patient meet any 2 criteria? No. Patient's initial sepsis screen is negative. Does the patient have a suspected source of infection? No. Patient's initial sepsis screen is negative. Risk Assessment: Do you want to hurt yourself or someone else? Patient reports no desire to harm self or others. Onset of symptoms was December 17, 2024. 15:24 Method Of Arrival: EMS: [facility] hb 15:24 Acuity: KERI 3 hb Triage Assessment: 15:30 General: Appears in no apparent distress. comfortable, Behavior is calm, cooperative, bp appropriate for age. Pain: Denies pain. EENT: No deficits noted. Neuro: Reports a syncopal episode. Cardiovascular: No deficits noted. Respiratory: No deficits noted. GI: No signs and/or symptoms were reported involving the gastrointestinal system. : No signs and/or symptoms were reported regarding the genitourinary system. Derm: No deficits noted. Musculoskeletal: No deficits noted. Historical: - Allergies: 15:26 Benadryl; RLS; hb - PMHx: 15:26 DM; Hypotension; hb - PSHx: 15:26 back; hb 15:26 Right BKA; hb - Immunization history:: Adult Immunizations up to date. - Infectious Disease History:: Denies. - Social history:: Smoking status: unknown. Screenin:00 [facility] ED Fall Risk Assessment (Adult) History of falling in the last 3 months, bp including since admission Yes- physiologic fall (2 pts) Confusion or Disorientation No (0 pts) Intoxicated or Sedated No (0 pts) Impaired Gait No (0 pts) Mobility Assist Device Used No (0 pt) Altered Elimination No (0 pt) Score/Fall Risk Level 0 - 2 = Low Risk Oriented to surroundings. Abuse screen: Denies threats or abuse. Denies injuries from another. Nutritional screening: No deficits noted. Tuberculosis screening: No symptoms or risk factors identified. Assessment: 15:30 General: SEE TRIAGE. bp 18:00 Reassessment: Patient appears in no apparent distress at this time. Patient is alert, bp oriented x 3, equal unlabored respirations, skin warm/dry/pink. Neuro: Level of Consciousness is awake, alert, obeys commands, Oriented to Appropriate for age. Cardiovascular: Rhythm is sinus rhythm. Vital Signs: 15:24 BP 102 / 72; Pulse 96; Resp 18; Temp 98.2; Pulse Ox 100% on R/A; Weight 81.65 kg; hb Height 6 ft. 0 in. ; Pain 4/10; 18:00 BP 109 / 69; Pulse 89; Resp 18; Pulse Ox 100% ; bp 15:24 Body Mass Index 24.41 (81.65 kg, 182.88 cm) hb 15:24 Pain Scale: Adult hb ED Course: 15:03 Patient arrived in ED. bd 15:08 Thony Capone DO is Attending Physician. ms3 15:15 Pilo Cooney, REJI is Primary Nurse. bp 15:26 Triage completed. hb 15:27 Arm band placed on. hb 16:23 Chest Single View XRAY In Process Unspecified. EDMS 17:37 Mario Healy MD is Referral Physician. ms3 18:00 Patient has correct armband on for positive identification. bp 18:00 No provider procedures requiring assistance completed. IV discontinued, intact, bp bleeding controlled, No redness/swelling at site. Pressure dressing applied. Administered Medications: No medications were administered Medication: 18:00 VIS not applicable for this client. bp Outcome: 17:37 Discharge ordered by . ms3 18:00 Discharged to home via wheelchair, with family, bp 18:00 Condition: stable 18:00 Discharge instructions given to patient, Instructed on discharge instructions, follow up and referral plans. Demonstrated understanding of instructions, follow-up care, 18:08 Patient left the ED. bp Signatures: Dispatcher [employer] EDMS Karin Arreguin Heather, REJI RN hb Pilo Cooney RN RN bp Thony Capone, DO JENSEN ms3 Corrections: (The following items were deleted from the chart) 15:27 15:26 PSHx: Right BKA (back); hb hb
--- NOTE | 2024-12-17 17:38 | EDPHYS ---
Physician Documentation [facility] Name: Kapil Pugh Age: 49 yrs Sex: Male : 1975 Arrival Date: 12/17/2024 Time: 15:01 Bed 10 Private MD: ED Physician Thony Capone HPI: 12/17 15:54 This 49 yrs old Male presents to ER via EMS with complaints of Syncope. ms3 15:54 49-year-old male with past medical history of diabetes, hypertension [place] [facility] [place] [facility] status post syncopal episode while urinating. Patient states he was found on the ground by his daughter approximately 30. Patient states he has had similar episodes of syncope in the past. Denies any alleviating or inciting factors. Patient denies pain at this time. Historical: - Allergies: 15:26 Benadryl; RLS; hb - PMHx: 15:26 DM; Hypotension; hb - PSHx: 15:26 back; hb 15:26 Right BKA; hb - Immunization history:: Adult Immunizations up to date. - Infectious Disease History:: Denies. - Social history:: Smoking status: unknown. ROS: 15:54 Constitutional: Negative for fever, and chills. Cardiovascular: Negative for chest ms3 pain, and palpitations. Respiratory: Negative for shortness of breath, cough, wheezing, and pleuritic chest pain, Abdomen/GI: Negative for abdominal pain, nausea, vomiting, diarrhea, and constipation, MS/Extremity: Negative for injury and deformity, 15:54 Skin: Positive for abrasion(s), 15:54 Neuro: Positive for syncope, Exam: 15:54 Constitutional: This is a well developed, well nourished patient who is awake, alert, ms3 and in no acute distress. Cardiovascular: Regular rate and rhythm with a normal S1 and S2. No gallops, murmurs, or rubs. Normal PMI, no JVD. No pulse deficits. Respiratory: Lungs have equal breath sounds bilaterally, clear to auscultation and percussion. No rales, rhonchi or wheezes noted. No increased work of breathing, no retractions or nasal flaring. Abdomen/GI: Soft, non-tender, with normal bowel sounds. No distension or tympany. No guarding or rebound. No evidence of tenderness throughout. 15:54 ECG was reviewed by the Attending Physician. 15:54 Skin: injury, abrasion(s), small abrasion noted, of the left medial malleolus , Vital Signs: 15:24 BP 102 / 72; Pulse 96; Resp 18; Temp 98.2; Pulse Ox 100% on R/A; Weight 81.65 kg; hb Height 6 ft. 0 in. ; Pain 4/10; 18:00 BP 109 / 69; Pulse 89; Resp 18; Pulse Ox 100% ; bp 15:24 Body Mass Index 24.41 (81.65 kg, 182.88 cm) hb 15:24 Pain Scale: Adult hb MDM: 15:08 Medical Screening Exam initiated ms3 18:46 Differential Diagnosis: cardiac arrhythmia, cerebrovascular accident, vasovagal ms3 episode. Data reviewed: vital signs, nurses notes, lab test result(s), EKG, radiologic studies, and as a result, I will discharge patient. Counseling: I had a detailed discussion with the patient and/or guardian regarding the historical points, exam findings, and any diagnostic results supporting the discharge/admit diagnosis, lab results, radiology results, the need for outpatient follow up, to return to the emergency department if symptoms worsen or persist or if there are any questions or concerns that arise at home. Special discussion: I discussed with the patient/guardian in detail that at this point there is no indication for admission to the hospital. It is understood, however, that if the symptoms persist or worsen the patient needs to return immediately for re-evaluation. ED course: Discussed labs, EKG, imaging with patient. Patient states she has had similar syncopal episodes in the past. Patient is alert and orient x 4, no apparent distress, nontoxic-appearing, speaking full sentences. Return precautions discussed include worsening symptoms, or any other concerns. Patient to follow-up with primary care physician in 2 to 3 days. Patient understands and agrees with plan.. 12/17 15:08 Order name: Basic Metabolic Panel; Complete Time: 16:44 ms3 12/17 15:08 Order name: CBC with Diff; Complete Time: 16:44 ms3 12/17 15:08 Order name: Hepatic Function; Complete Time: 16:44 ms3 12/17 15:08 Order name: Magnesium; Complete Time: 16:44 ms3 12/17 15:08 Order name: Protime (+inr); Complete Time: 16:44 ms3 12/17 15:08 Order name: Ptt, Activated; Complete Time: 16:44 ms3 12/17 15:08 Order name: Troponin High Sensitivity; Complete Time: 16:44 ms3 12/17 15:08 Order name: Chest Single View XRAY; Complete Time: 16:44 ms3 12/17 15:08 Order name: EKG; Complete Time: 15:09 ms3 12/17 15:08 Order name: Cardiac monitoring; Complete Time: 15:22 ms3 12/17 15:08 Order name: EKG - Nurse/Tech; Complete Time: 15:40 ms3 12/17 15:08 Order name: IV Saline Lock; Complete Time: 15:40 ms3 12/17 15:08 Order name: Labs collected and sent; Complete Time: 15:40 ms3 12/17 15:08 Order name: NPO; Complete Time: 15:22 ms3 12/17 15:08 Order name: O2 Per Protocol; Complete Time: 15:22 ms3 12/17 15:08 Order name: O2 Sat Monitoring; Complete Time: 15:22 ms3 EC:54 Rate is 92 beats/min. Rhythm is regular. QRS [place] is Normal. WA interval is normal. QRS ms3 interval is normal. Clinical impression: Normal ECG. Interpreted by me. Reviewed by me. Administered Medications: No medications were administered Disposition Summary: 12/17/24 17:37 Discharge Ordered Notes: Location: Home ms3 Condition: Stable ms3 Diagnosis - Micturition syncope ms3 Followup: ms3 - With: Mario Healy MD - When: 1 - 2 days - Reason: Recheck today's complaints Discharge Instructions: - Discharge Summary Sheet ms3 - Syncope, [id number] ms3 Forms: - Medication Reconciliation Form ms3 - Antibiotic Education ms3 - Prescription Opioid Use ms3 - Patient Portal Instructions ms3 - Leadership Thank You Letter ms3 Signatures: Dispatcher [employer] Kell Cheng, RN RN Pilo Nicholson RN RN Thony Garrison DO DO ms3 Corrections: (The following items were deleted from the chart) 15:27 15:26 PSHx: Right BKA (back); hb hb
[2024-12-17 18:42] VITALS: TEMP 98.2; O2SAT 100
[2024-12-17 18:44] VITALS: BP 109/69
== END 2024-12-17 18:08 | disposition home or self-care (01) ==
LOC: ER 15:01
DX: R55 Syncope and collapse (principal); E11.9 Type 2 diabetes mellitus without complications; Z89.511 Acquired absence of right leg below knee
CPT/HCPCS: 36415; 71045; 80048; 80076; 83735; 84484; 85025; 85610; 85730; 93005; 99283

== ENCOUNTER 2024-12-26 11:27 | Day surgery (SDC) | payer BC ==
--- NOTE | 2024-12-26 13:21 | ER ---
Nurse's Notes [facility] Name: Kapil Pugh Age: 49 yrs Sex: Male : 1975 Arrival Date: 12/26/2024 Time: 11:27 Bed [id number] Private MD: Diagnosis: Right wound dehiscence BKA Presentation: 12/26 11:54 Chief complaint: Patient states: Dr Bennett did a revision to right BKA amputation on [facility] 12/22 and the incision has opened, "the rich[place] have blown out". Dr Bennett wants to wait until next week to do anything with the incision but patient doesn't want to. Saw Dr Nagy in the office and was sent to ER by him. Denies fever. No infection. Coronavirus screen: Vaccine status: Patient reports being unvaccinated. Ebola Screen: No symptoms or risks identified at this time. Initial Sepsis Screen: Does the patient meet any 2 criteria? No. Patient's initial sepsis screen is negative. Does the patient have a suspected source of infection? No. Patient's initial sepsis screen is negative. Risk Assessment: Do you want to hurt yourself or someone else? Patient reports no desire to harm self or others. Onset of symptoms was December 22, 2024. 11:54 Method Of Arrival: Ambulatory [facility] 11:54 Acuity: KERI 3 me1 Triage Assessment: 14:44 General: Appears in no apparent distress. comfortable, Behavior is calm, cooperative. cm10 Neuro: No deficits noted. Level of Consciousness is awake, alert, obeys commands, Oriented to person, place, time, situation, Appropriate for age. Respiratory: No deficits noted. Airway is patent Respiratory effort is even, unlabored, Respiratory pattern is regular, symmetrical. Historical: - Allergies: 11:57 Benadryl; RLS; me1 - PMHx: 11:57 DM; hypotension; me1 - PSHx: 11:57 back; RIGHT BKA; me1 - Immunization history:: Adult Immunizations up to date. - Infectious Disease History:: Denies. - Social history:: Smoking status: Patient denies any tobacco usage or history of. Screenin:42 [facility] ED Fall Risk Assessment (Adult) History of falling in the last 3 months, cm10 including since admission No falls in past 3 months (0 pts) Confusion or Disorientation No (0 pts) Intoxicated or Sedated No (0 pts) Impaired Gait Yes (1 pt) Mobility Assist Device Used Yes (1 pt) Altered Elimination No (0 pt) Score/Fall Risk Level 0 - 2 = Low Risk Oriented to surroundings, Maintained a safe environment, Hourly rounding (assess needs \\T\\ fall precautionary measures) done. Abuse screen: Denies threats or abuse. Denies injuries from another. Nutritional screening: No deficits noted. Tuberculosis screening: No symptoms or risk factors identified. Assessment: 14:41 General: PER DR. CHAKA ZHANG LABS CAN BE CANCELLED. VERBAL ORDER RECEIVED [address] WITH SAME DAY SURGERY. Vital Signs: 11:54 BP 98 / 73; Pulse 87; Resp 18; Temp 98.1; Pulse Ox 100% ; Weight 81.65 kg; Height 6 ft. me1 2 in. ; Pain 5/10; 11:54 Body Mass Index 23.11 (81.65 kg, 187.96 cm) me1 11:54 Pain Scale: Adult ia1 ED Course: 11:41 Patient arrived in ED. cj3 11:47 Shyla Brewster MD is Attending Physician. sp3 11:57 Triage completed. me1 11:57 Arm band placed on Patient placed in waiting room. me1 12:52 Initial lab(s) drawn, by ia, sent to lab. ll1 12:54 Inserted saline lock: 20 gauge in left forearm, using aseptic technique. Flushed with ts3 10 mL NS. 13:20 Jolanta Mayen MD is Hospitalizing Provider. sp3 14:43 Patient has correct armband on for positive identification. Provided Education on: NEED 10 FOR ADMIT.. 14:43 No provider procedures requiring assistance completed. Patient admitted, IV remains in cm10 place. Administered Medications: No medications were administered Medication: 14:42 VIS not applicable for this client. cm10 Outcome: 13:19 Discharge ordered by . sp3 13:20 Decision to Hospitalize by Provider. sp3 14:43 Admitted to OR accompanied by nurse, via stretcher, 10 14:43 Condition: stable 14:43 Instructed on the need for admit, 14:44 Patient left the ED. cm10 Signatures: Edward Miranda RN RN ll1 Shyla Brewster MD MD sp3 Roseline Nagy RN RN cm10 Erin Gonzalez, RN RN me1 Leandra Alvarado cj3 Marianela Berry 3
--- NOTE | 2024-12-26 13:21 | EDPHYS ---
Physician Documentation [facility] Name: Kapil Pugh Age: 49 yrs Sex: Male : 1975 Arrival Date: 12/26/2024 Time: 11:27 Bed IW10 Private MD: ED Physician Shyla Brewster HPI: 12/26 13:08 This 49 yrs old Male presents to ER via Ambulatory with complaints of Wound Check - sp3 SENT BY ROSALEE. 13:08 49-year-old male with history of diabetes and hypertension presents with right BKA sp3 wound complication. Patient was initially seen by Dr. Bennett but now patient voluntarily has changed her surgeon to Dr. Nagy who is referred him to the ED. He will need to be admitted for wound stump revision and flap. ROS negative for any other complications or symptoms.. Historical: - Allergies: 11:57 Benadryl; RLS; me1 - PMHx: 11:57 DM; hypotension; me1 - PSHx: 11:57 back; RIGHT BKA; me1 - Immunization history:: Adult Immunizations up to date. - Infectious Disease History:: Denies. - Social history:: Smoking status: Patient denies any tobacco usage or history of. ROS: 13:09 Constitutional: Negative for fever, chills, and weight loss, Eyes: Negative for injury, sp3 pain, redness, and discharge, Neck: Negative for injury, pain, and swelling, Cardiovascular: Negative for chest pain, palpitations, and edema, Respiratory: Negative for shortness of breath, cough, wheezing, and pleuritic chest pain, Abdomen/GI: Negative for abdominal pain, nausea, vomiting, diarrhea, and constipation, Back: Negative for injury and pain, Skin: Negative for injury, rash, and discoloration, Neuro: Negative for headache, weakness, numbness, tingling, and seizure, 13:09 All other systems are negative, Exam: 13:16 Constitutional: This is a well developed, well nourished patient who is awake, alert, sp3 and in no acute distress. Head/Face: Normocephalic, atraumatic. Eyes: Pupils equal round and reactive to light, extra-ocular motions intact. Lids and lashes normal. Conjunctiva and sclera are non-icteric and not injected. Cornea within normal limits. Periorbital areas with no swelling, redness, or edema. Neck: Trachea midline, no thyromegaly or masses palpated, and no cervical lymphadenopathy. Supple, full range of motion without nuchal rigidity, or vertebral point tenderness. No Meningismus. Chest/axilla: Normal chest wall appearance and motion. Nontender with no deformity. No lesions are appreciated. Cardiovascular: Regular rate and rhythm with a normal S1 and S2. No gallops, murmurs, or rubs. Normal PMI, no JVD. No pulse deficits. Respiratory: Lungs have equal breath sounds bilaterally, clear to auscultation and percussion. No rales, rhonchi or wheezes noted. No increased work of breathing, no retractions or nasal flaring. Abdomen/GI: Soft, non-tender, with normal bowel sounds. No distension or tympany. No guarding or rebound. No evidence of tenderness throughout. Back: No spinal tenderness. No costovertebral tenderness. Full range of motion. Neuro: Awake and alert, GCS 15, oriented to person, place, time, and situation. Cranial nerves II-XII grossly intact. Motor strength 5/5 in all extremities. Sensory grossly intact. Cerebellar exam normal. Normal gait. Psych: Awake, alert, with orientation to person, place and time. Behavior, mood, and affect are within normal limits. 13:16 Musculoskeletal/extremity: Right BKA wound dehiscence currently bandaged. Patient seen by me 4 days ago.. Vital Signs: 11:54 BP 98 / 73; Pulse 87; Resp 18; Temp 98.1; Pulse Ox 100% ; Weight 81.65 kg; Height 6 ft. me1 2 in. ; Pain 5/10; 11:54 Body Mass Index 23.11 (81.65 kg, 187.96 cm) me1 11:54 Pain Scale: Adult me1 MDM: 11:55 Medical Screening Exam initiated sp3 13:18 Data reviewed: vital signs, nurses notes, old medical records, lab test result(s). ED sp3 course: Discussed with Dr. Nagy. Patient will be admitted to hospitalist for him to revise the wound tomorrow.. 12/26 12:02 Order name: IV Saline Lock; Complete Time: 12:52 sp3 12/26 13:05 Order name: Labs - recollect needed: recollect all labs please-tubes no initials or eb times Administered Medications: No medications were administered Disposition Summary: 12/26/24 13:20 Hospitalization Ordered Notes: Hospitalization Status: Observation sp3 Provider: Jolanta Mayen Location: Telemetry/MedSurg (observation)(12/26/24 13:20) sp3 Condition: Stable(12/26/24 13:20) sp3 Problem: an acute exacerbation sp3 Symptoms: have worsened sp3 Bed/Room Type: Standard sp3 Room Assignment: 229(12/26/24 14:15) eb Diagnosis - Right wound dehiscence BKA sp3 Forms: - Medication Reconciliation Form sp3 - SBAR form sp3 - Leadership Thank You Letter sp3 Signatures: Dispatcher [employer] EDLucia Cortes Setul, MD MD sp3 Erin Gonzalez RN RN me1 Corrections: (The following items were deleted from the chart) 13:19 13:19 Home sp3 sp3 13:19 13:19 Stable sp3 sp3 13:19 13:19 Right BKA wound dehiscence sp3 sp3 14:13 13:20 sp3 eb 14:15 14:13 228 eb eb
[2024-12-26] MEDS: Ringers Lactate 1,000 ML IV ONE (15:10)
[2024-12-26] MEDS ORDERED: FENTANYL CITR 100 MCG/2 ML ONE (15:50)
[2024-12-26] MEDS ORDERED: LIDOCAINE 2% MPF 5 ML VIAL ONE (15:50)
[2024-12-26] MEDS ORDERED: ONDANSETRON 4 MG/2 ML VIAL ONE (15:50)
[2024-12-26] MEDS ORDERED: MIDAZOLAM HCL 2 MG/2 ML INJ ONE (15:53)
[2024-12-26] MEDS: CEFAZOLIN SODIUM 1 GM/VIAL ONE (16:06)
[2024-12-26] MEDS ORDERED: EPHEDRINE SULF 50 MG/ML VIAL ONE (16:07)
--- NOTE | 2024-12-26 17:03 | RAD REPORT ---
EXAM: Fluoroscopy use, Fluoroscopy <1 Hour HISTORY: REMOVAL OF JONAS COMPARISON: None FINDINGS: A total of 2 images were sent to PACS, during a fluoroscopically guided staple removal. No radiologist was involved in protocoling or performance of the study, and no radiologist was present for the duration of the procedure. No interpretation of the saved images will be provided. Total fluoroscopy time: 0.0. Cumulative dose: 0.0206 mGy IMPRESSION: Documentation of fluoroscopy use as above.
[2024-12-26] MEDS: MUPIROCIN 2% OINT 22GM TUBE TOP ONE (17:07)
--- NOTE | 2024-12-26 17:21 | P.BOP ---
Preoperative diagnosis: wound deshiscense right stump Postoperative diagnosis: same Primary procedure: Right bka wound exploration, debridment and closure Estimated blood loss: <10cc Specimen: none Findings: Full wound deshiscense right stump Anesthesia: General Complications: None Drain(s): HORACE drain Transferred to: Recovery Room Condition: Good
[2024-12-26 17:54] VITALS: O2SAT 99
[2024-12-26 18:34] VITALS: BP 153/98; TEMP 97.2
--- NOTE | 2024-12-27 01:38 | CON ---
Diagnosis: Dehiscence of wound on the right BKA. 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 He stated the same night everything opened on its own, came to the ER next day, was seen by the surgeon doing that case, Dr. Bennett, and the p atient was discharged home. He comes serious to my office last night about the incidence trying to b e as neutral as I can, trying to understand his point. He has dehisced wound. There are few options we discussed, what other option required, revision of this below-knee and closure of the below-knee. Little bit overnight, I called the patient to see what is his wish and basically he would like to g kenisha it a try to closure of this wound and revision of his BKA, although he preferred to have length i f he has at this moment. So, he comes to the ER today since it was getting worse and the patient was then seen by me and explained what we can do for him. Apparently, the story is that he has an initi al surgery done at another institution, then comes here. He has been seen by Dr. Bennett for several weeks for wound care to try different modalities with no result and when the BKA revision was done o sunday, it came apart few hours later. I explained to him that I do not have any vascular studies at this moment to see what degree may be better for him, but I am trying to see if I can wash this ar ea and trying to approximate. If not, 30%, 50%, 80% of the area and the rest may have to be closed b y secondary intention. He does not want the bone to be cut at this moment. So, I am trying to irrig ate the area, watch out the area, and close this wound. Now, we noticed the skin edges are very tigh t and we might not be able to close it completely or at all, but at least we cleaned that area at thi s moment and controlled the bleeding. Allergies: INCLUDE NONE. Past Surgical History: Below-knee amputation and revision few days ago. Past Medical History: Diabetes. Social History: He is smoking. He was advised the importance of smoking cessation. He does not dri nk alcohol or drug abuse. Review of Systems: He has had leg pain. No fever. No shortness of breath. No chest pain. Review of Systems: Ten points otherwise unremarkable. Physical Examination: Vital Signs: Reviewed. General: The patient is awake, alert. HEENT: Pupils are equal and reactive. Anicteric. Neck: Supple. Chest: Clear. Heart: S1, S2. ABDOMEN: Soft and depressible. No guarding or rebound. No peritoneal signs. Extremities: The patient has dehisced wound over the right lower extremity, muscle exposed, bleeding from the skin edges and the x-ray shows that he has some foreign bodies in that region, probably fro m previous richmond. I have to check today since there is not that obvious outside. Skin edges with no cyanosis at this moment. The left lower extremity with evidence of peripheral vascular disease. No cyanosis. Laboratory Data: X-ray of the tibia and fibula on 12/23/2024 shows broken richmond present with soft tissue adjacent to the stump. Blood work is still pending. Assessment: This is a 49-year-old patient with dehiscence of the wound. We are going to do a watch out and trying to reapproximate the wound and revise that, although he does not want to do the formal technique of below-knee amputation. He had heel pain right at the distal part of it. He understand s and we closed this. He has to be compliance with treatment and there will be wound care and will b e following up with me in the future taking his antibiotics, not smoking. He does not want to see Dr Ziggy Bennett again. He asked me to be private about it and at this time, I just want to help him making first and then he may resolve his issues with Dr. Bennett in the future. He agreed with that and we are going to take it from here from now on and he is going to be compliant with what I ask him to do. BERNARDO/NIL Voice ID: [id number] Report ID: [id number]
--- NOTE | 2024-12-27 04:17 | DS ---
Date of Discharge: 12/26/2024 Diagnosis: Wound dehiscence, right stump. Procedure: Right wound exploration, debridement, revision, and wound closure with removal of foreign body and pulse lavage. Condition: Stable. Disposition: Home. Activity: Nonweightbearing over that area. HORACE drain to bulb suction. Discharge Instructions: [facility] He already has an appointment next T . He can leave the dressings where they are until then. He has already had his antibiotics pr escribed by the ER few days ago and he has pain medication too in the form of hydrocodone. BERNARDO/YVONNE Voice ID: [id number] Report ID: [id number]
--- NOTE | 2024-12-27 04:17 | OP ---
Date of Procedure: 12/26/2024 Surgeon: Last Nagy MD Preoperative Diagnosis: Wound dehiscence on the right stump, status post revision. Postoperative Diagnosis: Wound dehiscence on the right stump, status post revision. Procedures: Right below-knee wound exploration, debridement and closure (revision), removal of forei gn body. Estimated Blood Loss: Less than 10 cc. Specimens: None. Findings: The patient has full wound dehiscence on right stump. There is richmond that was identifie d with the x-ray that was also removed. Anesthesia: General plus local. Complications: None. Drains: HORACE #10. Indications: This is a case of a male, who comes to me after having a surgery done about [address] Bennett and he did apparently revision of the right below knee. He said he went that night ho me, the whole thing dehisced, all the skin opened. He claimed he did not fall. He did not walk on i t. He just opened on his own. He comes next day. Dr. Bennett saw him, had a plan, person comes jose y upset yesterday to my office requiring some other kind of treatment. I talked to him, gave him don e options, asked him also to see his previous surgeons, he did not want to, and so I decided then to help him with the procedure, so he came today with the stump open and I will put him in a schedule fo r revision/debridement/wound closure and removal of foreign body. The benefits, alternatives, and ri sks fully explained, which include, but not limited to infection, bleeding, damage to adjacent struct ures, anesthesia complication, recurrence, VA, and even . He also understands this may not reli fela symptoms. He might need more than one surgical intervention. He will require wound care. Description Of Procedure: The patient was brought to the operating room, placed in supine position. Anesthesia was done without complication. The right stump open wound was prepped and draped in a st erile fashion. We did a pulse lavage after time-out and injected local anesthetic, pulse lavage for about 2 L. Then, after that, we did an x-ray to look for foreign bodies, removed the foreign body in the form of richmond. When we made sure there were no more foreign bodies, then we proceeded to appr oximate the wound. We proceeded then to have a combination of nylon and we also used a 0 chromic to approximate the subcutaneous tissues since the fascia was so friable at this moment. The fascia then was approximated over the muscle. Then, after that, we closed the subcutaneous tissue with 3-0 triage clinician hailee and then the skin in a suture mattress #2 nylon interrupted multiple times. The area was covered with sterile dressings and then the patient was sent to recovery in stable condition. BERNARDO/YVONNE Voice ID: [id number] Report ID: [id number]
== END 2024-12-26 18:39 | disposition home or self-care (01) ==
LOC: ER 11:27 → 2ND 13:50 → UNDOADMOB 13:50 → ER 13:50 → INTOOBSV 13:50 → 2ND 13:50 → DS 18:18
PROVIDERS: ATTEND Hospitalist
PROC: 0JCN3ZZ Extirpation of Matter from Right Lower Leg Subcutaneous Tissue and Fascia, Percutaneous Approach (ICD-10-PCS; 2024-12-26)
PROC: 0JQN3ZZ Repair Right Lower Leg Subcutaneous Tissue and Fascia, Percutaneous Approach (ICD-10-PCS; principal; 2024-12-26 17:30)
DX: T87.81 Dehiscence of amputation stump (principal); M79.5 Residual foreign body in soft tissue
CPT/HCPCS: 12020; 10120; 82947 ×2; 76000; 99285; J2704; J1100; J2003; J2250; J3010; J2405; J7120; J0690